=== PATIENT | female | born 1995 | race Caucasian/White ===

== ENCOUNTER → 2020-11-03 13:14 | Outpatient (CLI) | payer BC, SELFPAY ==
[2020-11-03] MEDS: COVID-19 VACC #1, MRNA(MOD) 100 MCG/0.5 ML VIAL IM (13:23)
== END ==
PROVIDERS: Visit Provider Internal Medicine
DX: Z23 Encounter for immunization (principal)
CPT/HCPCS: 0011A; 91301

== ENCOUNTER → 2020-12-01 11:20 | Outpatient (CLI) | payer BC, SELFPAY ==
[2020-12-01] MEDS: COVID-19 VACC #2, MRNA(MOD) 100 MCG/0.5 ML VIAL IM (11:25)
== END ==
PROVIDERS: Visit Provider Internal Medicine
DX: Z23 Encounter for immunization (principal)
CPT/HCPCS: 0012A; 91301

== ENCOUNTER 2022-08-08 00:56 | Emergency (ER) | payer OTHER, SELFPAY ==
[2022-08-08 01:03] VITALS: BP 125/82; PULSE 74; RESP 20; TEMP 36.8; O2SAT 96; BMI 27.3
--- NOTE | 2022-08-08 01:26 | ED.ALLEREA ---
HPI - Allergic Reaction General Chief complaint: Allergic Reaction Stated complaint: AIR WAY IS TIGHT AND ITCHING AND SWELLING Time Seen by Provider: 08/08/22 01:15 Source: patient Mode of arrival: Ambulatory Limitations: no limitations History of Present Illness HPI narrative: Patient is a 26-year-old female. Is an insulin-dependent type 1 diabetic and also has a history of hypothyroidism who is here for evaluation approximately 24 hours after an onset of developing a rash. She states that it started shortly after eating some ice cream. She is never had that particular type of ice cream in the past. She did take some Benadryl without any improvement. She was unsure if the respiratory issues she was having was related to the rash were anxiety. She is having quite a bit of itching. She is had no other changes in her medications. No vomiting. No urinary symptoms. Related Data Home Medications Medication Instructions Recorded Confirmed insulin lispro 100 unit/mL 1 sliding scale dose SUBCUT 07/31/22 07/31/22 subcutaneous solution (Humalog USEASDIRECTD U-100 Insulin) levothyroxine 75 mcg capsule 75 mcg PO DAILY 07/31/22 07/31/22 Previous Rx's Medication Instructions Recorded meclizine 50 mg tablet 50 mg PO DAILY PRN dizziness #10 07/31/22 tabs prednisone 20 mg tablet 20 mg PO DAILY 6 days #6 tabs 08/08/22 Allergies Allergy/AdvReac Type Severity Reaction Status Date / Time No Known Drug Allergies Allergy Unverified 07/31/22 18:28 Review of Systems Constitutional Constitutional: Reports system reviewed and no additional complaints, except as documented ENT Ears, Nose, Mouth, and Throat: Reports system reviewed and no additional complaints, except as documented Respiratory Respiratory: Reports system reviewed and no additional complaints, except as documented Integumentary/Breasts Skin/Breast: Reports system reviewed and no additional complaints, except as documented Patient History Medical History Araceli's thyroiditis Hypothyroidism Type 1 diabetes Social History Smoking Status: Never smoker Smoking Status: Never smoker alcohol intake frequency: 0-2 drinks per day Substance Use Type: does not use Exam Initial Vital Signs Initial Vital Signs: Vital Signs Temperature 98.2 F 08/08/22 01:03 Pulse Rate 74 08/08/22 01:03 Respiratory Rate 20 08/08/22 01:03 Blood Pressure 125/82 08/08/22 01:03 Pulse Oximetry 96 08/08/22 01:03 Oxygen Delivery Method 08/08/22 01:03 Const General: cooperative and healthy appearing [facility] Head: normal to inspection and normocephalic Mouth: oral mucosae normal, oropharynx normal and moist mucous membranes Throat: posterior oropharynx normal Resp Effort & Inspection: normal respiratory effort Cardio Rate: regular rate Skin Other: Patient with urticaria mostly located on her face but also has an on her upper arms. Neuro General: patient alert and patient awake Course Orders Ordered: Discontinued Medications Diphenhydramine HCl (Diphenhydramine 25 Mg Tablet) 25 mg PO NOW ONE Stop: 08/08/22 02:02 Last Admin: 08/08/22 02:03 Dose: 25 mg Documented By: ANGEL Prednisone (Prednisone 20 Mg Tablet) 20 mg PO NOW ONE Stop: 08/08/22 01:27 Last Admin: 08/08/22 01:52 Dose: 20 mg Documented By: ANGEL Vital Signs Vital signs: Vital Signs - 8 hr 08/08/22 01:03 08/08/22 02:05 Temperature 98.2 F Pulse Rate 74 74 Respiratory Rate 20 20 Blood Pressure 125/82 130/79 Pulse Oximetry 96 96 Oxygen Delivery Method Room Air Room Air MDM - Allergic Reaction MDM Narrative Medical decision making narrative: Patient is obviously having a reaction to something in his most likely the ice cream that she ate or something that was in it however we can not be 100% sure and patient is aware this. Does not meet criteria for anaphylaxis. No respiratory distress. Plan will be is to start her on steroids. She knows that this could increase her blood sugar and she will monitor it appropriately. She was given return precautions and follow-up instructions. She expressed understanding and agreement. Discharge Plan Departure Patient Disposition: Home Clinical Impression: Allergic reaction Instructions: DI for General Allergic Reactions Activity Restrictions/Additional Instructions: Be sure that you are checking your blood sugars because the steroids can increase your insulin use. You can consider taking a Claritin or Zyrtec and also Benadryl. Return to the emergency department for any new or worsening symptoms. Prescriptions: New prednisone 20 mg tablet 20 mg PO DAILY 6 Days Qty: 6 0RF No Action insulin lispro [Humalog U-100 Insulin] 100 unit/mL solution 1 sliding scale dose SUBCUT USEASDIRECTD levothyroxine 75 mcg capsule 75 mcg PO DAILY meclizine 50 mg tablet 50 mg PO DAILY PRN (Reason: dizziness) Qty: 10 0RF Referrals: Miscellaneous,Doctor, MD [Primary Care Provider] - Stand Alone Forms: Patient Portal/API
[2022-08-08] MEDS: predniSONE 20 MG TABLET PO (01:52)
[2022-08-08] MEDS: diphenhydrAMINE 25 MG TABLET PO (02:03)
[2022-08-08 02:05] VITALS: BP 130/79; PULSE 74; RESP 20; O2SAT 96
== END 2022-08-08 02:05 | disposition home or self-care (01) ==
PROVIDERS: Emergency Provider Emergency Medicine
DX: T78.40XA Allergy, unspecified, initial encounter (principal)
CPT/HCPCS: 36415; 99283

== ENCOUNTER → 2024-10-19 17:39 | Outpatient (CLI) | payer OTHER, SELFPAY ==
--- NOTE | 2024-10-19 17:41 | DI.RAD.S_ITS ---
PROCEDURE: XR SHOULDER LT MIN 2V INDICATIONS: r/o fracture TECHNIQUE: Three views of the left shoulder were acquired. COMPARISON: None. FINDINGS: Bones: There are no osseous abnormalities. Acromioclavicular and glenohumeral joints: Normal in width and alignment without arthritic change Soft tissues: No soft tissue swelling, calcification or mass. IMPRESSION: Normal shoulder Dictated by: Renard Mansfield M.D. on 10/22/2024 at 12:01 Approved by: Renard Mansfield M.D. on 10/22/2024 at 12:02
== END ==
LOC: RAD 17:41
PROVIDERS: Referring Provider Nurse Practitioner Family; Visit Provider Nurse Practitioner Family
DX: S46.009A Unspecified injury of muscle(s) and tendon(s) of the rotator cuff of unspecified shoulder, initial encounter (principal); X58.XXXA Exposure to other specified factors, initial encounter
CPT/HCPCS: 73030